=== PATIENT | male | born 1965 | race Caucasian/White ===

== ENCOUNTER 2020-05-28 20:54 | Inpatient (IN) | payer OTHER ==
[~2020-05-28] VITALS: Ht 172.7 cm; Wt 102.0 kg
--- NOTE | 2020-05-28 21:30 | NUR ---
THIS IS A 54Y M THAT COMES IN FOR DIFFICULTY SPEAKING. PT WAS EATING DINNER WITH FAMILY AND WAS NOT ABLE TO GET THE CORRECT WORDS OUT. PT REPORTS MIGRAINE FOR PAST FEW DAYS AND HAS RESOLVED AT THIS TIME PER PT AND SYMPTOMS HAVE RESOLVED AT THIS TIME AND NEURO INTACT ABLE TO AMBULATE FROM TRIAGE W/O ASSIST. PT CONNECTED TO MONITORING.
[2020-05-28 21:32] LABS: BASOPHILS # (AUTO) 0.05 x10^3/uL (0-0.1); BASOPHILS % (AUTO) 1 % (0-1); EOSINOPHILS # (AUTO) 0.05 x10^3/uL (0-0.4); EOSINOPHILS % (AUTO) 1 % (1-7); LYMPHOCYTES # (AUTO) 2.71 x10^3/uL (1-3.4); LYMPHOCYTES % (AUTO) 26 % (22-44); MD NO; MEAN CORPUSCULAR HEMOGLOBIN 28.4 pg (27.5-34.5); MEAN CORPUSCULAR HGB CONC 33.2 g/dL (33.2-36.2); MEAN CORPUSCULAR VOLUME 85.5 fL (81-97); MEAN PLATELET VOLUME 8.4 fL (7.4-10.4); MONOCYTES # (AUTO) 0.66 x10^3/uL (0.2-0.8); MONOCYTES % (AUTO) 6 % (2-9); NEUTROPHILS % (AUTO) 67 % (42-75); PLATELET COUNT 338 x10^3/uL (130-400); RED BLOOD COUNT 5.24 x10^6/uL (4.38-5.82); RED CELL DISTRIBUTION WIDTH 12.8 % (9.4-14.8)
[2020-05-28 21:41] LABS: INTERNATIONAL NORMALIZED RATIO 0.9 (0.93-1.1); PROTHROMBIN TIME 9.5 Seconds (9.6-11.5)
[2020-05-28 21:42] LABS: ALANINE AMINOTRANSFERASE 46 U/L (12-78); ALBUMIN 4.2 g/dL (3.4-5.0); ANION GAP 6 mmol/L (5-15); CALCIUM 9.4 mg/dL (8.5-10.1); CHLORIDE 106 mmol/L (98-107); CREATININE 1.24 mg/dL (0.7-1.3)
[2020-05-28 21:45] LABS: ALKALINE PHOSPHATASE 71 U/L (45-117); BILIRUBIN,TOTAL 0.4 mg/dL (0.2-1.0); TOTAL PROTEIN 8.1 g/dL (6.4-8.2)
--- NOTE | 2020-05-28 21:52 | NUR ---
ALL RESULTS BACK CHART UP FOR RECHECK
[2020-05-28] MEDS ORDERED: ASPIRIN 81 MG TABLET CHEW ONE (21:56)
[2020-05-28] MEDS ORDERED: ASPIRIN 81 MG TABLET CHEW PO ONE (22:00)
--- NOTE | 2020-05-28 22:15 | NUR ---
VIVIAN PLACED PT AND AWARE AND AGREEABLE TO POC AND ADMISSION AFTER SPEAKING WITH DR. MCDONNELL
[2020-05-28] MEDS ORDERED: HYDROCHLOROTHIAZIDE 25 MG TABLET PO ONE (22:30)
[2020-05-28] MEDS ORDERED: AMLODIPINE 5 MG TABLET PO ONE (22:30)
[2020-05-28] MEDS ORDERED: ONDANSETRON 2MG/ML, 2ML IVPush PRN (23:00)
[2020-05-28] MEDS ORDERED: BISACODYL 10 MG SUPP PR PRN (23:00)
[2020-05-28] MEDS ORDERED: morphine SULFATE 10 MG/ML, 1ML IVPush PRN (23:00)
[2020-05-28] MEDS ORDERED: ACETAMINOPHEN 650 MG/20.3 ML UDC PO PRN (23:00)
[2020-05-28] MEDS ORDERED: SENNA/DOCUSATE TABLET PO PRN (23:00)
[2020-05-28] MEDS ORDERED: POLYETHYLENE GLYCOL 17 GM PACKET PO PRN (23:00)
[2020-05-28] MEDS ORDERED: HYDROcodone/APAP 5/325 TABLET PO PRN (23:00)
[2020-05-28 23:21] LABS: TROPONIN I < 0.015 ng/mL (0.000-0.045)
--- NOTE | 2020-05-28 23:30 | NUR ---
REPORT TO SAIMA AUSTIN ALL QUESTIONS ADDRESSED PT READY FOR TRANSPORT TO [facility]
[2020-05-28 23:52] VITALS: BP 155/84
[2020-05-29 03:11] VITALS: BP 133/82
[2020-05-29 05:45] LABS: CHLORIDE 107 mmol/L (98-107)
[2020-05-29 05:51] LABS: BASOPHILS # (AUTO) 0.04 x10^3/uL (0-0.1); BASOPHILS % (AUTO) 1 % (0-1); EOSINOPHILS # (AUTO) 0.14 x10^3/uL (0-0.4); EOSINOPHILS % (AUTO) 2 % (1-7); LYMPHOCYTES # (AUTO) 2.93 x10^3/uL (1-3.4); LYMPHOCYTES % (AUTO) 35 % (22-44); MD NO; MEAN CORPUSCULAR HEMOGLOBIN 28.3 pg (27.5-34.5); MEAN CORPUSCULAR HGB CONC 33.5 g/dL (33.2-36.2); MEAN CORPUSCULAR VOLUME 84.4 fL (81-97); MEAN PLATELET VOLUME 8.8 fL (7.4-10.4); MONOCYTES % (AUTO) 8 % (2-9); NEUTROPHILS # (AUTO) 4.65 x10^3/uL (1.8-6.8); NEUTROPHILS % (AUTO) 55 % (42-75); PLATELET COUNT 309 x10^3/uL (130-400); RED BLOOD COUNT 4.96 x10^6/uL (4.38-5.82); RED CELL DISTRIBUTION WIDTH 13.1 % (9.4-14.8)
[2020-05-29 06:01] LABS: ALANINE AMINOTRANSFERASE 38 U/L (12-78); ALBUMIN 3.8 g/dL (3.4-5.0); ALKALINE PHOSPHATASE 65 U/L (45-117); ANION GAP 7 mmol/L (5-15); BILIRUBIN,TOTAL 0.4 mg/dL (0.2-1.0); CALCIUM 9.2 mg/dL (8.5-10.1); CHOL/HDL RATIO 3.5; CHOLESTEROL, TOTAL 140 mg/dL (140-239); CREATININE 1.14 mg/dL (0.7-1.3); HDL CHOL % 29 % (26-37); HDL CHOLESTEROL (DIRECT) 40 mg/dL (40-60); LDL CHOLESTEROL,CALCULATED 51 mg/dL (54-169); LDL/HDL RATIO 1.3 (0.5-3.0); TOTAL PROTEIN 7.3 g/dL (6.4-8.2); TRIGLYCERIDES 246 mg/dL (50-200); TROPONIN I < 0.015 ng/mL (0.000-0.045); VLDL CHOLESTEROL 49 mg/dL (0-25)
[2020-05-29] MEDS ORDERED: LOSARTAN 100 MG TAB PO SCH (09:00)
[2020-05-29] MEDS ORDERED: ATORVASTATIN 40 MG TABLET PO SCH ×2 (09:00→21:00)
[2020-05-29] MEDS ORDERED: ASPIRIN 81 MG TABLET CHEW PO/NG SCH (09:00)
[2020-05-29 10:56] VITALS: BP 128/72
[2020-05-29 11:04] LABS: TROPONIN I < 0.015 ng/mL (0.000-0.045)
--- NOTE | 2020-05-29 11:41 | NUR ---
Do not anticipate need for POLYMERIZATION SUPERVISOR intervention at time of discharge. Addendum: 05/29/20 at 1141 by Kimmie CHAN Amended: Links added.
[2020-05-29 15:06] VITALS: BP 149/85
[2020-05-29] MEDS ORDERED: ASPI-515 PO/NG (17:33)
[2020-05-29] MEDS ORDERED: LOSA100T2 PO (17:33)
== END 2020-05-29 18:46 | disposition home or self-care (01) | DRG 69 ==
LOC: ED 22:40 → EDIP 22:50 → 5SO 23:49
PROVIDERS: ADMIT Internal Medicine; ATTEND Family Medicine
DX: G45.9 Transient cerebral ischemic attack, unspecified (principal); D72.829 Elevated white blood cell count, unspecified; E11.51 Type 2 diabetes mellitus with diabetic peripheral angiopathy without gangrene; E11.65 Type 2 diabetes mellitus with hyperglycemia; E78.5 Hyperlipidemia, unspecified; G43.909 Migraine, unspecified, not intractable, without status migrainosus; R13.10 Dysphagia, unspecified; I10 Essential (primary) hypertension; Z86.73 Personal history of transient ischemic attack (TIA), and cerebral infarction without residual deficits
CPT/HCPCS: 36415; 70450; 70551; 80053; 80061; 82962; 83036; 84484; 85025; 85610; 85730; 93005; 93306; 93880; G0378

== ENCOUNTER 2020-07-21 09:53 | Day surgery (SDC) | payer OTHER ==
[~2020-07-21] VITALS: Ht 175.3 cm; Wt 97.7 kg
[~2020-07-21 09:53] MED LIST: ASPI-515 PO/NG; LOSA100T2 PO
[2020-07-21] MEDS ORDERED: LIDOCAINE 2%, 20ML ONE (10:14)
== END 2020-07-21 12:20 | disposition home or self-care (01) ==
LOC: CACL 09:53
PROVIDERS: ATTEND Internal Medicine Cardiovascular Disease
DX: I63.9 Cerebral infarction, unspecified (principal); I10 Essential (primary) hypertension; E78.5 Hyperlipidemia, unspecified; K21.9 Gastro-esophageal reflux disease without esophagitis; Z79.82 Long term (current) use of aspirin; Z79.899 Other long term (current) drug therapy; Z88.8 Allergy status to other drugs, medicaments and biological substances
CPT/HCPCS: 33285; C1764